=== PATIENT | female | born 2000 | race Hispanic/Latino ===

== ENCOUNTER 2025-06-01 14:42 | Emergency (ER) | payer SELFPAY ==
[~2025-06-01] VITALS: Ht 170.2 cm; Wt 102.1 kg
[2025-06-01] MEDS ORDERED: AMOX1TAB16 PO (15:10)
--- NOTE | 2025-06-01 15:22 | ERN ---
General Chief Complaint: Abscess Stated Complaint: ABCESS Time Seen by MD: 14:52 Time Seen by Midlevel: 14:52 Source: patient History of Present Illness Initial Comments 25-year-old female presenting with an abscess to the left thigh that started four days ago. There is some redness to the area. She denies any fever, chills, or any other symptoms at this time. Allergies: Coded Allergies: No Known Allergies (Unverified Allergy, Unknown, 06/01/25) Past Medical History Past Medical History: No Pertinent History Past Surgical History: None Female( History) LMP: May 15, 2025 ROS Dictation CONSTITUTIONAL: Negative except for HPI HEAD/FACE: Negative except for HPI EENT: Negative except for HPI RESPIRATORY: Negative except for HPI GASTROINTESTINAL/ABDOMINAL: Negative except for HPI GENITOURINARY: Negative except for HPI MUSCULOSKELETAL: Negative except for HPI INTEGUMENTARY: Negative except for HPI NEUROLOGICAL/PSYCH: Negative except for HPI HEMATOLOGIC/LYMPHATIC: Negative except for HPI All Systems Negative, Except as noted above. 13 point review of systems assessed and all negative except for above. Physical Exam Physical Exam Dictation Vital Signs reviewed General Appearance: Alert, oriented x 3, no acute distress, well developed, nourished. Head and Face: non-traumatic. Eyes: PERRL, pink conjunctivas, eyelid no trauma, anterior chamber with arcus senilis. Ears: Pinnas intact and no signs of trauma or erythema ear canals clear and no discharge TM no erythema Nose: No discharge, no bleeding. Oropharynx: Mouth normal, tongue pink, pharynx clear,no erythema, tonsils no exudates, no abscesses noted, mucous membrane moist Neck: Supple, non-tender, no thyromegaly, no masses, no JVD, no bruits Breast:Deferred Chest:No tenderness, no crepitus, no paradoxical movement, no retractions Lungs:Clear, well-ventilated, symmetric, no rales, no wheezing, no rhonchi, no stridor, good breath sounds bilaterally Heart: Regular rate, regular rhythm, no murmur, no gallops Vascular: no peripheral edema, Abdomen: Soft, positive bowel sounds, nondistended, no guarding, nontender, no rebound, no masses no hepatomegaly, no splenomegaly, no Crews's sign, no hernias. Rectal: Deferred Genital: Deferred Neurological: Normal speech, motor function intact, sensory function intact Musculoskeletal: Neck nontender, full range of motion, back nontender, full range of motion, Extremities: nontender, full range of motion Skin: Abscess to the left thigh with surrounding erythema Lymphatic: Deferred MDM MDM: 25-year-old female presents to the ER for evaluation of an abscess to her left thigh that started three days ago. No systemic symptoms. There was an area of erythema but the abscess is not drainable at this time. We will give1 g of Rocephin in the ER and will discharged home with Augmentin. Differential diagnosis: Abscess, cellulitis There are no social concerns with this patient. Prescription drug management Prescriptions will include: Augmentin Medical management and examination interpretation discussions were had by me with other qualified healthcare professionals as indicated for the patient's care. ED Course Orders Procedure Category Date Status Time Ceftriaxone 1g Vial PHA 06/01/25 Verified (Rocephine 1g Inj) 15:30 Vital Signs Date Time Temp Pulse Resp B/P (MAP) Pulse Ox O2 Delivery O2 Flow Rate FiO2 06/01/25 14:44 97.9 96 18 130/88 99 0 DX & DISP Disposition: Discharge Departure Impression: Primary Impression: Abscess of left thigh Condition: Stable Scripts Amoxicillin/Potassium Clav (Amox Tr-K Clv 875-125 mg Tab) 875 Mg-125 Mg Tablet 1 EACH PO BID for 10 Days, #20 TAB 0 Refills Prov: JANIE METZ 06/01/25 Referrals: SELF,REFERRAL (PCP) Time of Disposition: 15:07 I have reviewed the case, and I agree with, Diagnosis and Plan I performed the substantive portion of the visit. I have reviewed and personally made and approve the management plan that is documented in the note by myself or the [facility]. I acknowledge for responsibility for the patient's management plan. JANIE METZ Jun 01, 2025 15:22
[2025-06-01 15:29] VITALS: BP 123/77; PULSE 89; RESP 16; TEMP 97.9; O2SAT 99
== END 2025-06-01 15:41 | disposition home or self-care (01) ==
LOC: EDH 14:42
DX: L02.416 Cutaneous abscess of left lower limb (principal)
CPT/HCPCS: 99283; 96372; J0696